=== PATIENT | female | born 1995 | race Caucasian/White ===

== ENCOUNTER 2022-04-13 10:48 | Emergency (ER) | payer SELFPAY ==
--- NOTE | ~2022-04-13 | XR_ITS ---
Right ankle Technique: AP, oblique, and lateral views were obtained. Clinical History: Trauma Findings: No acute fracture or dislocation is seen. Osseous alignment is anatomic. Ankle mortise and other visualized joint spaces are preserved. Mild lateral soft tissue swelling noted. Impression: No fracture or dislocation. Lateral soft tissue swelling. Reviewed, dictated and finalized at [facility]. [facility] [employer] Impression: No fracture or dislocation. Lateral soft tissue swelling.
--- NOTE | ~2022-04-13 | XR_ITS ---
Right foot Technique: AP, oblique, and lateral views were obtained. Clinical History: Trauma Findings: No acute fracture or dislocation is seen. Osseous alignment is anatomic. Joint spaces are p reserved without erosive or degenerative change. Soft tissues are unremarkable. Impression: Unremarkable right foot radiographs. Reviewed, dictated and finalized at [facility]. WARDEN Impression: Unremarkable right foot radiographs.
[2022-04-13 11:01] VITALS: BP 135/79; PULSE 82; RESP 16; TEMP 36.2; O2SAT 99
--- NOTE | 2022-04-13 11:14 | ED.LOWEXIN ---
HPI - Extremity Injury (Lower) General Chief Complaint: Extremity Injury, Lower Stated Complaint: Rt Ankle Swelling Time Seen by Provider: 04/13/22 11:07 Source: patient Mode of arrival: ambulatory Limitations: no limitations History of Present Illness HPI Narrative: Patient presents today complaining of pain to her right foot and ankle after she rolled yesterday at home. Denies numbness or tingling in the leg or foot. She currently rates her pain 6/10 with weight-bearing. She has been applying ice and taking ibuprofen with mild relief. Related Data Home Medications Medication Instructions Recorded Confirmed levonorgestrel 17.5 mcg/24 hrs See Rx Instructions .Route .COMPLEX 04/13/22 04/13/22 (5yrs) 19.5mg intrauterine device (Kyleena) Allergies Allergy/AdvReac Type Severity Reaction Status Date / Time No Known Allergies Allergy Verified 04/13/22 11:01 Review of Systems Review of Systems: CONSTITUTIONAL: Denies body aches, fever, chills, or sweats. EYES: Denies visual changes, redness, or discharge. ENT: Denies rhinorrhea, congestion, sore throat, or otalgia. CARDIOVASCULAR: Denies chest pain, palpitations, or edema. RESPIRATORY: Denies cough or dyspnea. GASTROINTESTINAL: Denies abdominal pain, nausea, vomiting, or diarrhea. GENITOURINARY: Denies dysuria or hematuria. SKIN: Denies rash, itching, or wounds. MUSCULOSKELETAL: Denies back pain, or myalgia.+ right ankle and foot pain NEUROLOGIC: Denies headache, numbness, tingling, or weakness. PSYCH: Denies depression or anxiety. PMFSH Comments At time of signature, I have reviewed and agree with nursing past medical, surgical, social and family history unless otherwise noted. Please see nursing chart for further information. There is no relevant family history pertinent to the presenting complaint Exam Narrative: GENERAL: Well-appearing, well-nourished, and in no acute distress. HEAD: Normocephalic, atraumatic. EYES: EOMI. No redness or drainage. Conjunctivae normal. ENT: Mucous membranes pink and moist. NECK: Normal AROM. CHEST: No respiratory distress. EXTREMITIES: Right ankle and foot: Tenderness and moderate edema to the lateral malleolus with mild ecchymosis. This with tenderness and edema extends to the proximal foot. Distal sensation intact. Capillary refill normal. Pedal pulse normal. Full range of motion of the ankle with increased pain. No pain medially or posteriorly SKIN: Warm, dry, no rash. Capillary refill normal. Normal skin turgor. NEURO: No focal deficits. Alert and oriented x3. Gait steady. PSYCH: Normal affect. No signs of depression or anxiety. Course Course Level of Care: Express Care Visit Vital Signs Vital signs: Vital Signs Temperature 97.1 F L 04/13/22 11:01 Pulse Rate 82 04/13/22 11:01 Respiratory Rate 16 04/13/22 11:01 Blood Pressure 135/79 04/13/22 11:01 Pulse Oximetry 99 04/13/22 11:01 Oxygen Delivery Room Air 04/13/22 11:01 Temperature 97.1 F L 04/13/22 11:01 Pulse Rate 82 04/13/22 11:01 Respiratory Rate 16 04/13/22 11:01 Blood Pressure 135/79 04/13/22 11:01 Pulse Oximetry 99 04/13/22 11:01 Oxygen Delivery Room Air 04/13/22 11:01 Reviewed. Pt has been instructed to follow up with her PCP regarding her elevated blood pressure today. MDM - Extremity Injury (Lower) MDM Narrative Medical decision making narrative: X-rays negative. Will wrap with Krishna wrap. Anticipatory guidance given. No prescriptions indicated at this time. Differential Diagnosis Differential diagnosis: Likely ankle sprain and strain, ankle fracture and other (Foot sprain, fracture) Imaging Data Attestation: I personally reviewed and interpreted this imaging study as follows: Radiologist's impression: ITS Impressions Ankle X-Ray 04/13/22 11:26 Impression: No fracture or dislocation. Lateral soft tissue swelling. Foot X-Ray 04/13/22 11:26 Impression: Unremarka
== END 2022-04-13 11:50 | disposition home or self-care (01) ==
PROVIDERS: Emergency Provider Nurse Practitioner; PCP Family Medicine Adolescent Medicine
DX: S93.401A Sprain of unspecified ligament of right ankle, initial encounter (principal); X50.9XXA Other and unspecified overexertion or strenuous movements or postures, initial encounter
CPT/HCPCS: 73610; 73630; 99213; G0463